=== PATIENT | male | born 1990 | race Caucasian/White ===

== ENCOUNTER 2020-10-09 21:31 | Emergency (ER) | payer BC ==
[2020-10-09 21:52] VITALS: BP 119/76; PULSE 87; RESP 18; TEMP 98
[2020-10-09] MEDS ORDERED: IBUPROFEN 600 MG TAB PO STA (22:04)
--- NOTE | 2020-10-09 22:26 | ED ---
Upper Extremity HPI - General Chief Complaint: Extremity Injury, Upper Stated Complaint: L Shoulder Pain, Work Note Time Seen by Provider: 10/09/20 21:53 Source: patient Mode of arrival: ambulatory - History of Present Illness Initial Comments: 30-year-old male presents to emergency Department with a chief complaint of left shoulder injury. Patient reports previous injury to the left shoulder, rotator cuff injury about 15 years ago. States this was never surgically repaired. States now he has exacerbations of the shoulder pain on yearly basis. States this time he was pulling an object when he fell to the ground and his arm was extended out. Now reports limited range of motion with abduction above 90. He denies any paresthesias. - Related Data Allergies Allergy/AdvReac Type Severity Reaction Status Date / Time sulfamethoxazole Allergy Rash/Hives Verified 10/09/20 21:52 [From Bactrim] trimethoprim [From Bactrim] Allergy Rash/Hives Verified 10/09/20 21:52 Review of Systems ROS Statement: Those systems with pertinent positive or pertinent negative responses have been documented in the HPI. ROS Other: All systems not noted in ROS Statement are negative. Past Medical History Past Medical History: No Reported History History of Any Multi-Drug Resistant Organisms: None Reported Past Surgical History: Tonsillectomy Past Psychological History: No Psychological Hx Reported Smoking Status: Current some day smoker Past Alcohol Use History: None Reported Past Drug Use History: Marijuana General Exam Limitations: no limitations General appearance: alert, in no apparent distress Head exam: Present: atraumatic, normocephalic, normal inspection Eye exam: Present: normal appearance, PERRL, EOMI Pupils: Present: normal accommodation ENT exam: Present: normal exam, normal oropharynx, mucous membranes moist Neck exam: Present: normal inspection, full ROM. Absent: tenderness, lymphadenopathy Respiratory exam: Present: normal lung sounds bilaterally. Absent: respiratory distress, wheezes, rales, rhonchi, stridor, chest wall tenderness, accessory muscle use Cardiovascular Exam: Present: regular rate, normal rhythm, normal heart sounds. Absent: systolic murmur, diastolic murmur Extremities exam: Present: normal inspection, tenderness (Anterior lateral left deltoid tenderness), normal capillary refill, other (Palpable ulnar and radial pulses bilaterally). Absent: full ROM (Limited range of motion with abduction the left shoulder), pedal edema, joint swelling, calf tenderness Back exam: Present: normal inspection, full ROM. Absent: tenderness, CVA tenderness (R), CVA tenderness (L) Neurological exam: Present: alert, oriented X3 Psychiatric exam: Present: normal affect, normal mood Skin exam: Present: warm, dry, intact, normal color Course Vital Signs 10/09/20 21:47 Temperature 98 F Pulse Rate 87 Respiratory 18 Rate Blood Pressure 119/76 O2 Sat by Pulse 98 Oximetry Medical Decision Making - Medical Decision Making 30-year-old male presents to emergency Department with a chief complaint of left shoulder injury. Physical examination is unremarkable. X-ray of the left shoulder shows no chief on his. Patient is otherwise neurovascularly intact. He was requesting ibuprofen here. I give him a sling. Advised to follow with underwriting support specialist. Return parameters were thoroughly discussed the patient is under standing agreeable. Case discussed with Dr. Aleman. Disposition Clinical Impression: Injury of left shoulder Disposition: HOME SELF-CARE Condition: Stable Instructions (If sedation given, give patient instructions): Rotator Cuff Injury (ED) Additional Instructions: Follow with underwriting support specialist. Return to emergency department if symptoms worsen. Is patient prescribed a controlled substance at d/c from ED?: No Referrals: Toni Heath DO [Primary Care Provider] - 1-2 days Bright Abad MD [STAFF PHYSICIAN] - 1-2 days Time of Disposition: 22:36
--- NOTE | 2020-10-09 22:33 | XR ---
EXAMINATION TYPE: XR shoulder complete LT DATE OF EXAM: 10/09/2020 COMPARISON: NONE HISTORY: Shoulder pain TECHNIQUE: 3 views FINDINGS: I see no fracture nor dislocation. Glenohumeral joint is intact. There are no pathologic ca lcifications. IMPRESSION: Negative left shoulder exam.
== END 2020-10-09 22:50 | disposition home or self-care (01) ==
LOC: EC 21:31
DX: S49.92XA Unspecified injury of left shoulder and upper arm, initial encounter (principal); F17.200 Nicotine dependence, unspecified, uncomplicated; F12.90 Cannabis use, unspecified, uncomplicated; W18.30XA Fall on same level, unspecified, initial encounter
CPT/HCPCS: 99283